=== PATIENT | male | born 1965 | race Native Hawaiian/Other Pacific Islander ===

== ENCOUNTER 2018-09-14 16:49 | Emergency (ER) | payer OTHER ==
[2018-09-14 16:57] VITALS: BMI 22.3
[2018-09-14 16:59] VITALS: O2SAT 99
--- NOTE | 2018-09-14 17:19 | C.PDOC ---
History Of Present Illness 53 y/o male presents to the ED for evaluation of low back pain since earlier today after he bent down in the shower. Pain is localized to the left paralumbar region. No direct trauma or recent fall. He otherwise denies any fevers, nausea, vomiting, abdominal pain, urinary symptoms, or bowel or bladder incontinence. Time Seen by Provider: 09/14/18 17:16 Chief Complaint (Nursing): Back Pain History Per: Patient History/Exam Limitations: no limitations Onset/Duration Of Symptoms: Hrs Current Symptoms Are (Timing): Still Present Quality Of Discomfort: "Pain" Past Medical History Reviewed: Historical Data, Nursing Documentation, Vital Signs Vital Signs: Last Vital Signs Temp 98.3 F 09/14/18 16:56 Pulse 66 09/14/18 16:56 Resp 18 09/14/18 16:56 BP 153/89 H 09/14/18 16:56 Pulse Ox 99 09/14/18 16:56 - Medical History PMH: Hypercholesterolemia Denies: Depression Family History: States: No Known Family Hx - Social History Hx Tobacco Use: No Hx Alcohol Use: No Hx Substance Use: No - Immunization History Hx Tetanus Toxoid Vaccination: No Hx Influenza Vaccination: No Hx Pneumococcal Vaccination: No Review Of Systems Except As Marked, All Systems Reviewed And Found Negative. Constitutional: Negative for: Fever, Chills Respiratory: Negative for: Shortness of Breath Gastrointestinal: Negative for: Nausea, Vomiting, Abdominal Pain Genitourinary: Negative for: Dysuria, Incontinence, Hematuria Musculoskeletal: Positive for: Back Pain Neurological: Negative for: Weakness, Numbness, Incoordination Physical Exam - Physical Exam Appears: Non-toxic, No Acute Distress Skin: Warm, Dry, No Rash Head: Atraumatic, Normacephalic Eye(s): bilateral: Normal Inspection, PERRL, EOMI Neck: Normal ROM, No Midline Cervical Tenderness, No Step Off Deformity Chest: Symmetrical Cardiovascular: Rhythm Regular, No Murmur Respiratory: Normal Breath Sounds, No Accessory Muscle Use Back: No Vertebral Tenderness, No Decreased ROM, Paraspinal Tenderness (Paralumbar tenderness, left > right) Extremity: Bilateral: Atraumatic, Normal ROM Neurological/Psych: Oriented x3, Normal Cranial Nerves, Normal Motor, Normal Sensation Gait: Steady ED Course And Treatment O2 Sat by Pulse Oximetry: 99 (RA) Pulse Ox Interpretation: Normal Medical Decision Making Medical Decision Making: Impression: Low back pain - suspec tmsk pain. Plan: - 10 mg PO Flexeril - 30 mg IM Toradol - 550 mg PO Naproxen Patient remains AAOx3, in no acute distress, and ambulatory with steady gait. neruo intact no direct trauma no midline ttp no stepoffs no indication for plain film imaging. no saddle anesthesai in er pt in nad. playing cell phone games Will d/c patient home. Advised patient to take all meds as prescribed and follow up with PMD. Disposition - Disposition Referrals: Navi Harding MD [Non-Staff] - Disposition: HOME/ ROUTINE Disposition Time: 18:00 Condition: STABLE Additional Instructions: return to er with worsening symptoms or concerns. Prescriptions: Cyclobenzaprine [Cyclobenzaprine HCl] 10 mg PO DAILY PRN #10 tab PRN Reason: Muscle Spasm Naproxen 500 mg PO BID PRN #14 tab PRN Reason: Pain, Mild (1-3) Instructions: Low Back Pain (DC) Forms: [employer] (Hungarian) - Clinical Impression Clinical Impression: Low back pain - Scribe Statement The provider has reviewed the documentation as recorded by the Bossmanibjulius Pate Provider Attestation: All medical record entries made by the Bossmanibe were at my direction and persona lly dictated by me. I have reviewed the chart and agree that the record accurately reflects my personal performance of the history, physical exam, medical decision making, and the department course for this patient. I have also personally directed, reviewed, and agree with the discharge instructions and disposition.
[2018-09-14] MEDS: Naproxen 550 mg Tab PO STA (17:45)
[2018-09-14] MEDS ORDERED: Naproxen 550 mg Tab PO ONE (18:03)
[2018-09-14 18:07] VITALS: BP 148/76; PULSE 67; RESP 14; TEMP 98
== END 2018-09-14 18:08 | disposition home or self-care (01) ==
LOC: C.ER 16:49
DX: M54.5 Low back pain (principal)